=== PATIENT | female | born 1995 | race Two or more races ===

== ENCOUNTER 2022-09-13 15:20 | Emergency (ER) | payer MEDICAID, OTHER ==
[~2022-09-13] VITALS: Ht 165.1 cm; Wt 50.0 kg
[2022-09-13] MEDS ORDERED: LORA10CA7 PO (16:11)
[2022-09-13] MEDS ORDERED: HYDR-3682 PO (16:11)
[2022-09-13] MEDS ORDERED: DexAMETHasone SOD PHOS 10MG/1ML VIAL INJ IM ONE (16:15)
[2022-09-13] MEDS ORDERED: LORATADINE 10 MG TAB PO ONE (16:15)
[2022-09-13 17:35] VITALS: BP 107/73
== END 2022-09-13 18:09 | disposition home or self-care (01) ==
LOC: ER 15:20
DX: T78.3XXA Angioneurotic edema, initial encounter (principal)
CPT/HCPCS: 96372; 99283; J1100